=== PATIENT | male | born 1970 | race Caucasian/White ===

== ENCOUNTER 2017-05-10 13:49 | Observation (INO) | payer BC ==
[2017-05-10] MEDS ORDERED: 0.9 % SODIUM CHLORIDE 1,000 ML BAG IV ONE (14:40)
[2017-05-10] MEDS ORDERED: ONDANSETRON HCL IV 4 MG/2 ML VIAL IV ONE (14:40)
[2017-05-10] MEDS ORDERED: HYDROMORPHONE HCL 1MG/ML **SYRINGE IVP ONE (14:41)
[2017-05-10 15:03] LABS: BASO % 0.1 % (0-6); EOS % 0.4 % (0-6); GRAN % 76.9 % (47-80); HEMATOCRIT 39.3 % (42.0-52.0); HEMOGLOBIN 13.8 gm/dl (14.0-18.0); MEAN CELL VOLUME 86.4 fl (81-97); MEAN CORPUSCULAR HEMOGLOBIN 30.3 pg (27-33); MEAN CORPUSCULAR HGB CONC 35.1 g/dl (32-36); MEAN PLATELET VOLUME 9.7 fl (7.4-10.4); MONO % 11.6 % (0-9); PLATELET COUNT 176 K/uL (130-400); RED BLOOD COUNT 4.55 M/uL (4.40-5.70); RED CELL DISTRIBUTION WIDTH 12.3 % (11.5-14.5); WHITE BLOOD COUNT W/O DIFF 7.2 K/uL (4.2-12.2)
[2017-05-10 15:23] LABS: ALBUMIN 4.1 g/dL (4.0-5.0); ALKALINE PHOSPHATASE 80 U/L (40-129); ALT/SGPT 22 U/L (<41); AST/SGOT 13 U/L (10.0-50.0); BILIRUBIN,DIRECT 0.3 mg/dL (0-0.3); BLOOD UREA NITROGEN 12 mg/dL (6-20); CREATININE 0.6 mg/dL (0.7-1.2); EST GLOMERULAR FILTRATION RATE > 60 mL/min; GLUCOSE,RANDOM 357 mg/dL (74-109); LIPASE 135 U/L (13-60); TOTAL PROTEIN 6.6 g/dL (6.6-8.7)
[2017-05-10 17:10] LABS: ACETONE,SERUM NEGATIVE (NEGATIVE)
--- NOTE | 2017-05-10 17:31 | Emergency Department Record ---
History of Present Illness - General Chief complaint: Pain Stated complaint: SHART PAIN IN RT RIBS Time Seen by Provider: 05/10/17 14:21 Source: Patient Mode of Arrival: Ambulatory Limitations: No limitations - History of Present Illness Initial comments: pt has ruq pain which is getting progressively worse. movement makes it worse. pt is unable to lay on side. pt did roof his house this week but denies any injury. MD Complaint: Abdominal Pain Onset/Timin -: Days(s) Location: Right, Other History of Same: No Radiation: Proximal Consistency: Constant Improves with: Nothing Worsens with: Exertion, Other Associated Symptoms: Denies other symptoms - Related Data Home Medications Medication Instructions Recorded Confirmed Last Taken No Home Med [NO HOME MEDS] 05/10/17 05/10/17 Unknown Allergies Allergy/AdvReac Type Severity Reaction Status Date / Time No Known Drug Allergies Allergy Verified 05/10/17 14:14 Travel Screening - Travel/Exposure Within Last 30 Days Have you traveled within the last 30 days?: No - Travel/Exposure Within Last Year Have you traveled outside the [place] in the last year?: No - Additonal Travel Details Have you been exposed to anyone with a communicable illness?: No - Travel Symptoms Symptom Screening: None Review of Systems Reviewed: No additional complaints except as noted below Constitutional: Reports: As per HPI. Denies: Chills, Fever, Malaise, Night sweats, Weakness, Weight change Eyes: Reports: As per HPI. Denies: Eye discharge, Eye pain, Photophobia, Vision change ENT: Reports: As per HPI. Denies: Congestion, Dental pain, Ear pain, Epistaxis , Hearing loss, Throat pain Respiratory: Reports: As per HPI. Denies: Cough, Dyspnea, Hemoptysis, Stridor, Wheezes Cardiovascular: Reports: As per HPI. Denies: Arrhythmia, Chest pain, Dyspnea on exertion, Edema, Murmurs, Orthopnea, Palpitations, Paroxysmal nocturnal dyspnea, Rheumatic Fever, Syncope Endocrine: Reports: As per HPI. Denies: Fatigue, Heat or cold intolerance, Polydipsia, Polyuria Gastrointestinal: Reports: As per HPI. Denies: Abdominal pain, Constipation, Diarrhea, Hematemesis, Hematochezia, Melena, Nausea, Vomiting Genitourinary: Reports: As per HPI. Denies: Dysuria, Frequency, Hematuria, Incontinence, Retention, Testicular pain, Testicular mass, Urgency Musculoskeletal: Reports: As per HPI. Denies: Arthralgia, Back pain, Gout, Joint swelling, Myalgia, Neck pain Skin: Reports: As per HPI. Denies: Bruising, Change in color, Change in hair/ nails, Lesions, Pruritus, Rash Neurological: Reports: As per HPI. Denies: Abnormal gait, Confusion, Headache, Numbness, Paresthesias, Seizure, Tingling, Tremors, Vertigo, Weakness Psychiatric: Reports: As per HPI. Denies: Anxiety, Auditory hallucinations, Depression, Homicidal thoughts, Suicidal thoughts, Visual hallucinations Hematological/Lymphatic: Reports: As per HPI. Denies: Anemia, Blood Clots, Easy bleeding, Easy bruising, Swollen glands Past Medical History - SOCIAL HISTORY Smoking Status: Never smoker Alcohol Use: Rare Drug Use: None - RESPIRATORY Hx Respiratory Disorders: No - CARDIOVASCULAR Hx Cardio Disorders: No - NEURO Hx Neuro Disorders: No - GI Hx GI Disorders: Yes Hx Hiatal Hernia: Yes - Hx Genitourinary Disorders: Yes Hx Kidney Stones: Yes - ENDOCRINE Hx Endocrine Disorders: No - MUSCULOSKELETAL Hx Musculoskeletal Disorders: No - PSYCH Hx Psych Problems: No - HEMATOLOGY/ONCOLOGY Hx Hematology/Oncology Disorders: Yes Hx Cancer: Yes (melanoma) Family Medical History Any Significant Family History?: No Hx Diabetes: Father, Grandparents Physical Exam - General General Appearance: Alert, Oriented x3, Cooperative, Mild distress - Head Head exam: Normal inspection - Eye Eye exam: Normal appearance, PERRL, EOMI Pupils: Normal accommodation - ENT ENT exam: Normal exam, Mucous membranes moist, Normal external ear exam, Normal orophraynx Ear exam: Normal external inspection. negative: External canal tenderness Nasal Exam: Normal inspection. negative: Discharge, Sinus tenderness Mouth exam: Normal external inspection, Tongue normal Teeth exam: Normal inspection. negative: Dental caries Throat exam: Normal inspection. negative: Tonsillar erythema, Tonsillar exudate - Neck Neck exam: Normal inspection, Full ROM. negative: Tenderness - Respiratory Respiratory exam: Normal lung sounds bilaterally. negative: Respiratory distress - Cardiovascular Cardiovascular Exam: Regular rate, Normal rhythm, Normal heart sounds - GI/Abdominal GI/Abdominal exam: Soft, Normal bowel sounds, Tenderness (ruq) - Rectal Rectal exam: Deferred - exam: Deferred - Extremities Extremities exam: Normal inspection, Full ROM, Normal capillary refill. negative: Tenderness - Back Back exam: Reports: Normal inspection, Full ROM. Denies: Muscle spasm, Rash noted, Tenderness - Neurological Neurological exam: Alert, CN II-XII intact, Normal gait, Oriented X3, Reflexes normal - Psychiatric Psychiatric exam: Normal affect, Normal mood - Skin Skin exam: Dry, Intact, Normal color, Warm Course Vital Signs 05/10/17 05/10/17 05/10/17 14:06 14:45 15:00 Temperature 98.9 F Pulse Rate 67 Pulse Rate [ 74 71 Pulse Ox Probe] Respiratory 16 16 16 Rate Blood Pressure 158/80 Blood Pressure 137/82 138/77 [Left Arm] Pulse Ox 97 98 98 05/10/17 05/10/17 16:00 17:00 Temperature Pulse Rate Pulse Rate [ 75 71 Pulse Ox Probe] Respiratory 16 16 Rate Blood Pressure Blood Pressure 135/74 136/73 [Left Arm] Pulse Ox 98 99 - Reevaluation(s) Reevaluation #1: 05/10/17 19:00 d/w dr hedrick and nino Medical Decision Making - Lab Data Result diagrams: 05/10/17 14:48 05/10/17 14:48 Lab Results 05/10/17 05/10/17 05/10/17 Range/Units 14:48 14:48 14:54 WBC 7.2 (4.2-12.2) K/uL RBC 4.55 (4.40-5.70) M/uL Hgb 13.8 L (14.0-18.0) gm/dl Hct 39.3 L (42.0-52.0) % MCV 86.4 (81-97) fl MCH 30.3 (27-33) pg MCHC 35.1 (32-36) g/dl RDW 12.3 (11.5-14.5) % Plt Count 176 (130-400) K/uL MPV 9.7 (7.4-10.4) fl Gran % 76.9 (47-80) % Lymphocytes % 11.0 L (16-45) % Monocytes % 11.6 H (0-9) % Eosinophils % 0.4 (0-6) % Basophils % 0.1 (0-6) % VBG pH 7.34 (7.33-7.43) Sodium 133 L (136-145) mmol/L Potassium 3.8 (3.4-4.5) mmol/L Chloride 94 L (98-107) mmol/L Carbon Dioxide 27.0 (22-29) mmol/L Anion Gap 12.0 (7-16) BUN 12 (6-20) mg/dL Creatinine 0.6 L (0.7-1.2) mg/dL Estimated GFR > 60 mL/min Random Glucose 357 H (74-109) mg/dL Calcium 8.9 (8.6-10.0) mg/dL Total Bilirubin 1.40 H (0.2-1.0) mg/dL Direct Bilirubin 0.3 (0-0.3) mg/dL AST 13 (10.0-50.0) U/L ALT 22 (<41) U/L Alkaline Phosphatase 80 (40-129) U/L Total Protein 6.6 (6.6-8.7) g/dL Albumin 4.1 (4.0-5.0) g/dL Lipase 135 H (13-60) U/L Acetone, Qual Negative (NEGATIVE) Disposition Disposition: Admit Clinical Impression: Acute cholecystitis Disposition: Still a Patient at [facility] Decision to Admit: Admit from ER Decision to Admit Date: 05/10/17 Decision to Admit Time: 19:02 Forms: Patient Portal Access Quality - Quality Measures Quality Measures: N/A - Blood Pressure Screening Does Patient Have Any of the Following: No Blood Pressure Classification: Pre-Hypertensive BP Reading Systolic Measurement: 158 Diastolic Measurement: 80 Screening for High Blood Pressure: < Pre-Hypertensive BP, F/U Documented > [ G8950] Pre-Hypertensive Follow-up Interventions: Follow-up with rescreen every year.
[2017-05-10] MEDS ORDERED: ERTAPENEM SODIUM 1 G in 0.9 % SODIUM CHLORIDE 100ML 100 ML IVPB ONE (18:59)
[2017-05-10 19:09] LABS: URINE APPEARANCE CLEAR; URINE BILIRUBIN NEGATIVE (NEGATIVE); URINE BLOOD NEGATIVE (NEGATIVE); URINE COLOR YELLOW; URINE KETONE 40 mg/dL (NEGATIVE); URINE LEUKOCYTE ESTERASE NEGATIVE (NEGATIVE); URINE NITRITE NEGATIVE (NEGATIVE); URINE PROTEIN NEGATIVE (NEGATIVE); URINE UROBILINOGEN 0.2 E.U./dL (0.20 - 1.00)
[2017-05-10 19:13] LABS: URINE GLUCOSE (UA) >=1000 mg/dL (NEGATIVE)
[2017-05-10] MEDS ORDERED: ONDANSETRON HCL IV 4 MG/2 ML VIAL IVP PRN (20:16)
[2017-05-10] MEDS ORDERED: HYDROMORPHONE HCL 1MG/ML **SYRINGE IVP PRN (20:16)
[2017-05-10] MEDS: 0.9 % SODIUM CHLORIDE 1000ML 1,000 ML IV PRN (21:21)
[2017-05-11] MEDS: 0.9 % SODIUM CHLORIDE 1000ML 1,000 ML IV PRN (05:26)
[2017-05-11 06:11] LABS: BASO % 0.1 % (0-6); GRAN % 79.3 % (47-80); HEMATOCRIT 37.4 % (42.0-52.0); LYMPH % 7.8 % (16-45); MEAN CELL VOLUME 87.8 fl (81-97); MEAN CORPUSCULAR HEMOGLOBIN 30.5 pg (27-33); MEAN CORPUSCULAR HGB CONC 34.8 g/dl (32-36); MEAN PLATELET VOLUME 9.6 fl (7.4-10.4); MONO % 12.8 % (0-9); PLATELET COUNT 155 K/uL (130-400); RED BLOOD COUNT 4.26 M/uL (4.40-5.70); RED CELL DISTRIBUTION WIDTH 12.4 % (11.5-14.5); WHITE BLOOD COUNT W/O DIFF 7.9 K/uL (4.2-12.2)
[2017-05-11 07:06] LABS: ALB/GLOB RATIO 1.3 (1.1-1.8); ALBUMIN 3.5 g/dL (4.0-5.0); ALKALINE PHOSPHATASE 90 U/L (40-129); ALT/SGPT 85 U/L (<41); AST/SGOT 119 U/L (10.0-50.0); BLOOD UREA NITROGEN 9 mg/dL (6-20); CREATININE 0.6 mg/dL (0.7-1.2); EST GLOMERULAR FILTRATION RATE > 60 mL/min; GLUCOSE,RANDOM 228 mg/dL (74-109); LIPASE 19 U/L (13-60); TOTAL PROTEIN 6.2 g/dL (6.6-8.7)
[2017-05-11] MEDS ORDERED: NOVOLOG FLEXPEN (INSULIN ASPART) 100 UNITS/ML SQ SCH (07:45)
[2017-05-11] MEDS ORDERED: LEVEMIR FLEXTOUCH 100 UNIT/ML INSULIN PEN SQ ONE (08:21)
--- NOTE | 2017-05-11 12:19 | History & Physical ---
History of Present Illness - Date of Service Date of Service for History & Physical: 05/11/17 - History of Present Illness Admitting Diagnosis: acute cholecystitis, new onset diabetes History of Present Illness: 46yo male with CC of right upper quadrant pain. HE has history of kidney stones and melanoma. Family history of T2DM. Patient presented to ED after 2 days of progressively worse right upper quadrant abdominal pain. Says he did put a new roof on his house this weekend so thought it was just soreness from that but continued to get worse and sharper in quality. It was unlike previous kidney stones he had. while in the ED, patient was noted to have BP of 158/80, temp of 98.9. He had CBC with normal wbc count of 7.2 nd hgb of 13.8. CMP showed glucose of 357, AG of 12. Lipase slightly elevated at 135. Tbili was high at 1.40 but direct was 0.3. No elevation of AST/ALT. UA showed ketones and glucose. acetone was negative and venous ph was 7.34 CT abdomen shwoed GB distension with mild inflammatory changes. no stones or ductal dilitation but acalculus cholecystitis could not be excluded. Case was discussed with Dr. Benavidez, General surgery, and he was admitted at [facility] with neeraj scheduled for friday. 05/11/17- Patient states he is feeling a little better today. His pain is better controlled. He denies any nausea/vomiting. He has been kept npo since admission. He denies any BM today. Travel Screening - Travel/Exposure Within Last 30 Days Have you traveled within the last 30 days?: No - Travel/Exposure Within Last Year Have you traveled outside the [place] in the last year?: No - Additonal Travel Details Have you been exposed to anyone with a communicable illness?: No - Travel Symptoms Symptom Screening: None Review of Systems Constitutional: Reports: As per HPI. Denies: Chills, Fever, Malaise, Night sweats, Weakness, Weight change Eyes: Reports: As per HPI. Denies: Eye discharge, Eye pain, Photophobia, Vision change ENT: Reports: As per HPI. Denies: Congestion, Dental pain, Ear pain, Epistaxis , Hearing loss, Throat pain Respiratory: Reports: As per HPI. Denies: Cough, Dyspnea, Hemoptysis, Stridor, Wheezes Cardiovascular: Reports: As per HPI. Denies: Arrhythmia, Chest pain, Dyspnea on exertion, Edema, Murmurs, Orthopnea, Palpitations, Paroxysmal nocturnal dyspnea, Rheumatic Fever, Syncope Endocrine: Reports: As per HPI. Denies: Fatigue, Heat or cold intolerance, Polydipsia, Polyuria Gastrointestinal: Reports: As per HPI. Denies: Abdominal pain, Constipation, Diarrhea, Hematemesis, Hematochezia, Melena, Nausea, Vomiting Genitourinary: Reports: As per HPI. Denies: Dysuria, Frequency, Hematuria, Incontinence, Retention, Testicular pain, Testicular mass, Urgency Musculoskeletal: Reports: As per HPI. Denies: Arthralgia, Back pain, Gout, Joint swelling, Myalgia, Neck pain Skin: Reports: As per HPI. Denies: Bruising, Change in color, Change in hair/ nails, Lesions, Pruritus, Rash Neurological: Reports: As per HPI. Denies: Abnormal gait, Confusion, Headache, Numbness, Paresthesias, Seizure, Tingling, Tremors, Vertigo, Weakness Psychiatric: Reports: As per HPI. Denies: Anxiety, Auditory hallucinations, Depression, Homicidal thoughts, Suicidal thoughts, Visual hallucinations Hematological/Lymphatic: Reports: As per HPI. Denies: Anemia, Blood Clots, Easy bleeding, Easy bruising, Swollen glands Past Medical History - SOCIAL HISTORY Smoking Status: Never smoker Alcohol Use: None Drug Use: None - RESPIRATORY Hx Respiratory Disorders: No - CARDIOVASCULAR Hx Cardio Disorders: No - NEURO Hx Neuro Disorders: No - GI Hx GI Disorders: Yes Hx Hiatal Hernia: Yes - Hx Genitourinary Disorders: Yes Hx Kidney Stones: Yes - ENDOCRINE Hx Endocrine Disorders: No - MUSCULOSKELETAL Hx Musculoskeletal Disorders: No - PSYCH Hx Psych Problems: No - HEMATOLOGY/ONCOLOGY Hx Hematology/Oncology Disorders: Yes Hx Cancer: Yes (melanoma) Family Medical History Any Significant Family History?: Yes Hx Diabetes: Father, Grandparents H&P Meds/Allergies - Allergies Allergies: Allergies Allergy/AdvReac Type Severity Reaction Status Date / Time No Known Drug Allergies Allergy Verified 05/10/17 14:14 - Home Medications Home Medications Medication Instructions Recorded Confirmed Last Taken No Home Med [NO HOME MEDS] 05/10/17 05/10/17 Unknown - Active Medications Active Medications: Current Medications Hydromorphone HCl (Dilaudid) 0.5 mg IVP Q4HR PRN PRN Reason: Abdominal Pain Last Admin: 05/10/17 23:27 Dose: 0.5 mg Sodium Chloride () 1,000 mls @ 125 mls/hr IV .Q8H PRN PRN Reason: LARGE VOLUME IV Last Admin: 05/11/17 05:26 Dose: 125 mls/hr Insulin Aspart (Novolog Flexpen) 1 unit SQ TIDINS MOODY PRN Reason: Protocol Last Admin: 05/11/17 08:47 Dose: Not Given Ondansetron HCl (Zofran) 4 mg IVP Q4H PRN PRN Reason: NAUSEA Physical Exam - Vital Signs Vital Signs: Vital Signs - Last 24 Hrs Temp Pulse Resp BP Pulse Ox 05/11/17 09:00 18 05/11/17 08:27 98.7 F 76 18 136/71 94 L 05/11/17 06:00 98.0 F 74 18 129/69 96 05/11/17 00:00 97.8 F 77 16 121/71 95 05/10/17 21:00 18 05/10/17 20:00 98.5 F 71 18 143/76 96 - General General Appearance: Alert, Oriented x3, Cooperative, No acute distress Limitations: No limitations - Head Head exam: Normal inspection - Eye Eye exam: Normal appearance, PERRL, EOMI Pupils: Normal accommodation - ENT ENT exam: Normal exam, Mucous membranes moist, Normal external ear exam, Normal orophraynx Ear exam: Normal external inspection. negative: External canal tenderness Nasal Exam: Normal inspection. negative: Discharge, Sinus tenderness Mouth exam: Normal external inspection, Tongue normal Teeth exam: Normal inspection. negative: Dental caries Throat exam: Normal inspection. negative: Tonsillar erythema, Tonsillar exudate - Neck Neck exam: Normal inspection, Full ROM. negative: Tenderness - Respiratory Respiratory exam: Normal lung sounds bilaterally. negative: Respiratory distress - Cardiovascular Cardiovascular Exam: Regular rate, Normal rhythm, Normal heart sounds - GI/Abdominal GI/Abdominal exam: Soft, Normal bowel sounds, Tenderness (ruq) - Rectal Rectal exam: Deferred - exam: Deferred - Extremities Extremities exam: Normal inspection, Full ROM, Normal capillary refill. negative: Tenderness - Back Back exam: Reports: Normal inspection, Full ROM. Denies: Muscle spasm, Rash noted, Tenderness - Neurological Neurological exam: Alert, CN II-XII intact, Normal gait, Oriented X3, Reflexes normal - Psychiatric Psychiatric exam: Normal affect, Normal mood - Skin Skin exam: Dry, Intact, Normal color, Warm Results - Labs Result Diagrams: 05/11/17 05:45 05/11/17 05:45 Labs Last 24 Hours: Laboratory Results - last 24 hr 05/10/17 05/10/17 05/11/17 21:52 22:00 05:40 WBC RBC Hgb Hct MCV MCH MCHC RDW Plt Count MPV Gran % Lymphocytes % Monocytes % Eosinophils % Basophils % Sodium Potassium Chloride Carbon Dioxide Anion Gap BUN Creatinine Estimated GFR POC Glucose Cancelled 236 H Random Glucose Hemoglobin A1c Calcium Total Bilirubin Direct Bilirubin 1.5 H AST ALT Alkaline Phosphatase Total Protein Albumin Globulin Albumin/Globulin Ratio Lipase 05/11/17 05/11/17 05/11/17 05:40 05:40 05:45 WBC 7.9 RBC 4.26 L Hgb 13.0 L Hct 37.4 L MCV 87.8 MCH 30.5 MCHC 34.8 RDW 12.4 Plt Count 155 MPV 9.6 Gran % 79.3 Lymphocytes % 7.8 L Monocytes % 12.8 H Eosinophils % 0.0 Basophils % 0.1 Sodium Potassium Chloride Carbon Dioxide Anion Gap BUN Creatinine Estimated GFR POC Glucose Random Glucose Hemoglobin A1c Cancelled 11.40 H Calcium Total Bilirubin Direct Bilirubin AST ALT Alkaline Phosphatase Total Protein Albumin Globulin Albumin/Globulin Ratio Lipase 05/11/17 05:45 WBC RBC Hgb Hct MCV MCH MCHC RDW Plt Count MPV Gran % Lymphocytes % Monocytes % Eosinophils % Basophils % Sodium 133 L Potassium 4.5 Chloride 95 L Carbon Dioxide 27.0 Anion Gap 11.0 BUN 9 Creatinine 0.6 L Estimated GFR > 60 POC Glucose Random Glucose 228 H Hemoglobin A1c Calcium 8.1 L Total Bilirubin 3.40 H Direct Bilirubin AST 119 H ALT 85 H Alkaline Phosphatase 90 Total Protein 6.2 L Albumin 3.5 L Globulin 2.7 Albumin/Globulin Ratio 1.3 Lipase 19 - Imaging and Cardiology CT scan - abdomen Status: Report reviewed VTE H&P Assessment - Risk for VTE Risk for VTE: Yes Risk Level: Moderate Risk Assessment Date: 05/11/17 Risk Assessment Time: 08:00 VTE Orders Placed or Will Be Placed: No VTE Reason for No Prophylaxis: Contraindicated (no anticoagulation as patient will be transferring for MRCP) Plan - Detailed Diagnosis and Plan (1) Acute cholecystitis Status: Acute Base Code: K81.0 - ACUTE CHOLECYSTITIS Comment: 05/11/17- CT showed acute cholecystitis. WBC count remains normal today at 7.9. Tbili jumped to 3.40 with increase in direct bili to 1.5. AST i sup to 119 and ALT up to [address]. [address] Benavidez who recommends transfer at this time to [facility] for MRCP. -Patient will be transferred to [facility] as soon as bed is available -continue npo status (2) T2DM (type 2 diabetes mellitus) Status: Acute Qualifiers: Diabetes mellitus complication status: without complication Diabetes mellitus senior care insulin use: without press operator heavy duty use Qualified Code(s): E11.9 - Type 2 diabetes mellitus without complications Base Code: E11.9 - TYPE 2 DIABETES MELLITUS WITHOUT COMPLICATIONS Comment: - New diagnosis of T2DM. A1C came back at 11.40. Patient follows [facility] Dr. Jazmine Jara as pcp but hasn't been in several years. -counseled on new diagnosis x10 min and importance of following up wtih his pcp. -patient is currently npo and is being transferred to [facility] for mrcp. (3) Full code status Status: Acute Base Code: Z78.9 - OTHER SPECIFIED HEALTH STATUS Comment: 05/11- patient is full code
--- NOTE | 2017-05-12 08:47 | CT SCAN REPORT ---
EXAM: CT OF THE ABDOMEN AND PELVIS WITH CONTRAST HISTORY: RIGHT UPPER QUADRANT PAIN. TECHNIQUE: Sequential axial images were obtained from the diaphragms through the ischiorectal fossa after intravenous and oral administration of 100 ml of Omnipaque 300 contrast material. FINDINGS: The liver appears normal. There is mild gallbladder distention with equivocal mild surrounding inflammatory change. No gallstones or ductal dilatation. The pancreas and spleen appear normal. The adrenal glands and kidneys appear normal. The small and large bowel appears normal. The appendix is visualized and appears normal. The urinary bladder appears normal. There is fat containing left inguinal hernia. The osseous structures are normal. IMPRESSION: GALLBLADDER DISTENTION WITH MILD SURROUNDING INFLAMMATORY CHANGE. NO GALLSTONES OR DUCTAL DILATATION. AN ACALCULOUS CHOLECYSTITIS CANNOT BE ENTIRELY EXCLUDED. JOB NUMBER: [id number] [facility]
--- NOTE | 2017-05-19 11:10 | Discharge Summary ---
Providers Discharge Summary Date: 05/11/17 Date of admission: 05/10/17 19:55 Expected Date of Discharge: 05/11/17 Attending physician: Guilherme Morgan Primary care physician: JAZMINE WHALEN D.O. Physical Exam - General General Appearance: Alert, Oriented x3, Cooperative, No acute distress Limitations: No limitations - Head Head exam: Normal inspection - Eye Eye exam: Normal appearance, PERRL, EOMI Pupils: Normal accommodation - ENT ENT exam: Normal exam, Mucous membranes moist, Normal external ear exam, Normal orophraynx Ear exam: Normal external inspection. negative: External canal tenderness Nasal Exam: Normal inspection. negative: Discharge, Sinus tenderness Mouth exam: Normal external inspection, Tongue normal Teeth exam: Normal inspection. negative: Dental caries Throat exam: Normal inspection. negative: Tonsillar erythema, Tonsillar exudate - Neck Neck exam: Normal inspection, Full ROM. negative: Tenderness - Respiratory Respiratory exam: Normal lung sounds bilaterally. negative: Respiratory distress - Cardiovascular Cardiovascular Exam: Regular rate, Normal rhythm, Normal heart sounds - GI/Abdominal GI/Abdominal exam: Soft, Normal bowel sounds, Tenderness (ruq) - Rectal Rectal exam: Deferred - exam: Deferred - Extremities Extremities exam: Normal inspection, Full ROM, Normal capillary refill. negative: Tenderness - Back Back exam: Reports: Normal inspection, Full ROM. Denies: Muscle spasm, Rash noted, Tenderness - Neurological Neurological exam: Alert, CN II-XII intact, Normal gait, Oriented X3, Reflexes normal - Psychiatric Psychiatric exam: Normal affect, Normal mood - Skin Skin exam: Dry, Intact, Normal color, Warm Hospitalization - Hospitalization Admission Diagnosis: acute cholecystitis, new onset diabetes - Problem List/Discharge Diagnosis (1) Acute cholecystitis Status: Acute Base Code: K81.0 - ACUTE CHOLECYSTITIS Comment: 05/11/17- CT showed acute cholecystitis. WBC count remains normal today at 7.9. Tbili jumped to 3.40 with increase in direct bili to 1.5. AST i sup to 119 and ALT up to [address]. [address] case [address] Benavidez who recommends transfer at this time to [facility] for MRCP. -Patient will be transferred to [facility] as soon as bed is available -continue npo status (2) T2DM (type 2 diabetes mellitus) Status: Acute Discharge Diagnosis: Diabetes mellitus complication status: without complication Diabetes mellitus detention insulin use: without detention use Qualified Code(s): E11.9 - Type 2 diabetes mellitus without complications Base Code: E11.9 - TYPE 2 DIABETES MELLITUS WITHOUT COMPLICATIONS Comment: - New diagnosis of T2DM. A1C came back at 11.40. Patient follows [facility] Dr. Jazmine Whalen as pcp but hasn't been in several years. -counseled on new diagnosis x10 min and importance of following up wtih his pcp. -patient is currently npo and is being transferred to [facility] for mrcp. (3) Full code status Status: Acute Base Code: Z78.9 - OTHER SPECIFIED HEALTH STATUS Comment: 05/11- patient is full code - Hospitalization Course Disposition: Acute Care Hospital Transfer Abnormal Labs: Abnormal Lab Results 05/10/17 05/11/17 05/11/17 Range/Units 22:00 05:40 05:40 RBC (4.40-5.70) M/uL Hgb (14.0-18.0) gm/dl Hct (42.0-52.0) % Lymphocytes % (16-45) % Monocytes % (0-9) % Sodium (136-145) mmol/L Chloride (98-107) mmol/L Creatinine (0.7-1.2) mg/dL POC Glucose 236 H (70-110) mg/dL Random Glucose (74-109) mg/dL Hemoglobin A1c 11.40 H (4.0-6.00) % Calcium (8.6-10.0) mg/dL Total Bilirubin (0.2-1.0) mg/dL Direct Bilirubin 1.5 H (0-0.3) mg/dL AST (10.0-50.0) U/L ALT (<41) U/L Total Protein (6.6-8.7) g/dL Albumin (4.0-5.0) g/dL 05/11/17 05/11/17 05/11/17 Range/Units 05:45 05:45 11:30 RBC 4.26 L (4.40-5.70) M/uL Hgb 13.0 L (14.0-18.0) gm/dl Hct 37.4 L (42.0-52.0) % Lymphocytes % 7.8 L (16-45) % Monocytes % 12.8 H (0-9) % Sodium 133 L (136-145) mmol/L Chloride 95 L (98-107) mmol/L Creatinine 0.6 L (0.7-1.2) mg/dL POC Glucose 198 H (70-110) mg/dL Random Glucose 228 H (74-109) mg/dL Hemoglobin A1c (4.0-6.00) % Calcium 8.1 L (8.6-10.0) mg/dL Total Bilirubin 3.40 H (0.2-1.0) mg/dL Direct Bilirubin (0-0.3) mg/dL AST 119 H (10.0-50.0) U/L ALT 85 H (<41) U/L Total Protein 6.2 L (6.6-8.7) g/dL Albumin 3.5 L (4.0-5.0) g/dL Condition at Discharge: (2) Stable Discharge Medications - Discharge Medications Home Medications: Ambulatory Orders No Home Med [NO HOME MEDS] 05/10/17 [Last Taken Unknown] Discharge Plan - Discharge Instructions Activity at Discharge: Resume Usual Activities As Tolerated Diet at Discharge: Diabetic Diet Quality Measures - Quality Measures Quality Measures: Documentation of Current Medications in Medical Record, Screening for High Blood Pressure and F/U Documented - Current Medications Quality Measure: Measure #130: Documentation of Current Medications Documentation of Current Medications: <Current Medications Documented/Reviewed> [G8427] - Blood Pressure Screening Quality Measure: Screening for High Blood Pressure and Follow-Up Documented Does Patient Have Any of the Following: No Blood Pressure Classification: Pre-Hypertensive BP Reading Systolic Measurement: 132 Diastolic Measurement: 80 Screening for High Blood Pressure: < Pre-Hypertensive BP, F/U Documented > [ G8950] Pre-Hypertensive Follow-up Interventions: Referral to alternative/primary care provider. - Elder Abuse Suspicion Index EASI Reference Information: Lulú EASON, Nando C, Rachell D, Corrina M.Development and validation of a tool to assist physicians identification of elder abuse: The Elder Abuse Suspicion Index (EASI ). Journal of Elder Abuse and Neglect, 2008; 20 (3): 276-300.
== END 2017-05-11 11:45 | disposition short-term general hospital (02) ==
LOC: ER 13:49 → MEDSURG 19:42 → INTOOBSV 19:55 → MEDSURG 19:55
PROVIDERS: ADMIT Internal Medicine; ATTEND Internal Medicine
DX: K81.0 Acute cholecystitis (principal); E11.9 Type 2 diabetes mellitus without complications; Z85.820 Personal history of malignant melanoma of skin
CPT/HCPCS: 99285 ×2; 96365; 96375; 82248; 82800; 83690 ×2; 85025 ×2; 80076; 80048; 80053; 36416 ×2; 82009; 83036; 82948 ×2; 81003; 74177; G0378 ×2; Q9967; J1335; J2405; J1170; 99220; J7030